=== PATIENT | female | born 1950 | race Caucasian/White ===

== ENCOUNTER 2018-04-24 10:30 | Inpatient (IN) | payer OTHER ==
--- NOTE | 2018-04-21 09:28 | HP ---
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 She had focally close margins in deep and medial aspect 2.5mm lateral and 3 mm medial skin margin. She has been advised to undergo Total mastectomy by another surgeon. She has strong famiy H/O breast cancer in two sisters. History Source: Patient Limitations to Obtaining History: No Limitations - Past Medical History Cardiovascular: Yes: HTN, Hyperlipdemia Additional Past Medical History: proctalgia fugax - Past Surgical History Past Surgical History: Yes: Tonsillectomy Additional Past Surgical History: Right breast wide excision for DCIS 2014, RT and re excision of right nipple showing pagets 2018 deviated septum - Smoking History Smoking history: Former smoker Have you smoked in the past 12 months: No Aproximately how many cigarettes per day: 20 If you are a former smoker, when did you quit?: 1977 - Alcohol/Substance Use Hx Alcohol Use: Yes (DAILY) Home Medications - Allergies Allergies/Adverse Reactions: Allergies Allergy/AdvReac Type Severity Reaction Status Date / Time codeine Allergy Severe Nausea Verified 04/17/18 11:07 SURGICAL TAPE AdvReac Severe WELTS ON Uncoded 04/17/18 11:18 SKIN - Home Medications Home Medications: Ambulatory Orders Aspirin [Aspirin EC] 81 mg PO DAILY 04/17/18 Cholecalciferol (Vitamin D3) [Vitamin D] 2,000 unit PO DAILY 04/17/18 Clonazepam 0.5 mg PO HS 04/17/18 Docusate Sodium 100 mg PO DAILY 04/17/18 Losartan/Hydrochlorothiazide [Losartan-Hctz 100-12.5 mg Tab] 1 each PO DAILY Melatonin 10 mg PO HS 04/17/18 [place]-3S/Dha/Epa/Fish Oil [Fish Oil 1,200 mg Softgel] 1 each PO DAILY 04/17/18 Polyethylene Glycol 3350 [Miralax (For Daily Use) -] 17 gm PO DAILY 04/17/18 Sennosides [Senna] 8.6 mg PO DAILY 04/17/18 Simvastatin 10 mg PO HS 04/17/18 Zinc 50 mg PO DAILY 04/17/18 Family Disease History - Family Disease History Family Disease History: [place]: Sister (DCIS at 48//Sister Breast ca 52 BRCA neg) Other Family History: nephew brain ca teen Physical Examination Constitutional: Yes: Well Nourished Breast(s): Yes: Other ( B cups breast obvious vertical well healed incision right breast from recent removal of right nipple areolar complex . no palpable densities either breast or adenopathy) Problem List - Problems (1) DCIS (ductal carcinoma in situ) of breast Code(s): D05.10 - INTRADUCTAL CARCINOMA IN SITU OF UNSPECIFIED BREAST Assessment/Plan DCIS and Pagets DZ Right total mastectomy with sentenel node biopsy, lymphoscintogram, possible axillary node dissection, implant reconstruction
[2018-04-24] MEDS ORDERED: ONDANSETRON 4 MG/2 ML VIAL ONE ×2 (12:36→16:42)
[2018-04-24] MEDS ORDERED: KETAMINE HCL 200 MG/20 ML VIAL ONE (12:36)
[2018-04-24] MEDS ORDERED: LIDOCAINE HCL/PF 2% SDV 5ML VIAL ONE (12:36)
[2018-04-24] MEDS ORDERED: DEXAMETHASONE SOD PHOSPHATE 4 MG/1 ML VIAL ONE (12:36)
[2018-04-24] MEDS ORDERED: SODIUM CHLORIDE 0.9% P/F 10 ML VIAL IJ ONE (12:36)
[2018-04-24] MEDS ORDERED: ceFAZolin SODIUM 1 GM VIAL ONE ×2 (12:36→13:29)
[2018-04-24] MEDS ORDERED: ROCURONIUM BROMIDE 50 MG/5 ML VIAL ONE ×2 (12:37→15:34)
[2018-04-24] MEDS ORDERED: PROPOFOL 20 ML ONE (12:37)
[2018-04-24] MEDS ORDERED: ESMOLOL HCL 100,000 MCG/10 ML VIAL ONE (12:40)
[2018-04-24 12:46] VITALS: BMI 24.4
[2018-04-24] MEDS ORDERED: MIDAZOLAM HCL 2 MG/2 ML SINGLE DOSE VIAL ONE ×2 (12:47)
[2018-04-24] MEDS ORDERED: BUPIVACAINE LIPOSOME/PF (EXPAREL) 266 MG/20 ML VIAL ONE (13:04)
[2018-04-24] MEDS ORDERED: GENTAMICIN SO4 80 MG/2 ML VIAL ONE (13:29)
[2018-04-24] MEDS ORDERED: ISOSULFAN BLUE 10 MG/ML VIAL SQ ONE (13:59)
[2018-04-24] MEDS ORDERED: ePHEDrine SULFATE 50 MG/1 ML AMPULE ONE (14:42)
[2018-04-24] MEDS ORDERED: ONDANSETRON 4 MG/2 ML VIAL IVPUSH PRN (16:00)
[2018-04-24] MEDS ORDERED: DEXTROSE 5%-0.45% SALINE 1,000 ML IV SCH (16:00)
[2018-04-24] MEDS ORDERED: ACETAMINOPHEN 325 MG TABLET (FP) PO PRN (16:00)
[2018-04-24] MEDS ORDERED: GLYCOPYRROLATE 0.2 MG/1 ML VIAL ONE (16:26)
[2018-04-24] MEDS ORDERED: NEOSTIGMINE METHYLSULFATE 0.5 MG/ML - 10 ML MDV ONE (16:26)
[2018-04-24] MEDS ORDERED: oxyCODONE HCL 5 MG TABLET PO PRN (16:27)
--- NOTE | 2018-04-24 17:07 | OP ---
Operative Note - Note: Operative Date: 04/24/18 Pre-Operative Diagnosis: Breast cancer Operation: Right breast reconstruction with implant and alloderm Surgeon: Kartik Shin Kitchen Aide: Richmond Kaplan Anesthesia: General Estimated Blood Loss (mls): 50 Operative Report Dictated: Yes
--- NOTE | 2018-04-24 17:07 | SURG ---
Surgery Satellite Manager Note Satellite Manager: Richmond Kaplan PA-C Date of Service: 04/24/18 Diagnosis: Right breast cancer Procedure: Right breast reconstruction with implant and alloderm I was present for the entirety of the operative procedure. For further detail, please refer to operative report.
[2018-04-24] MEDS ORDERED: ACETAMINOPHEN 1000 MG/100 ML VIAL (NON FORMULARY) IVPB ONE ×2 (17:22→17:23)
[2018-04-24] MEDS ORDERED: oxyCODONE HCL 10 MG SUSTAINED ACTING TABLET ONE (17:50)
[2018-04-24] MEDS ORDERED: oxyCODONE HCL 5 MG TABLET PO ONE (17:55)
[2018-04-24] MEDS ORDERED: oxyCODONE HCL 5 MG TABLET ONE (17:55)
[2018-04-24] MEDS: Methylnaltrexone Bromide 12 MG/0.6 ML KIT SQ SCH (17:58)
[2018-04-24] MEDS ORDERED: traMADol HCL 50 MG TABLET ONE (18:30)
[2018-04-24] MEDS ORDERED: traMADol HCL 50 MG TABLET PO ONE (18:35)
[2018-04-24] MEDS: traMADol HCL 50 MG TABLET PO SCH ×2 (19:15→21:19)
[2018-04-24] MEDS: ACETAMINOPHEN 325 MG TABLET (FP) PO SCH ×2 (19:15→23:20)
[2018-04-24] MEDS ORDERED: HYDROmorphone HCL CARPU-JECT 2 MG/1 ML DISP.SYRIN IVPB PRN (19:28)
[2018-04-24] MEDS ORDERED: CEFAZOLIN 1 GM/D5W 50 ML IVPB SCH (21:00)
[2018-04-24] MEDS: CEFAZOLIN 1 GM/D5W 1 GM/50 ML BAG IVPB SCH (21:17)
[2018-04-24] MEDS: SENNOSIDES 8.6MG TABLET (FP) PO SCH (21:17)
[2018-04-24] MEDS: ATORVASTATIN CA 10 MG TABLET (FP) PO SCH (21:18)
[2018-04-24] MEDS: diazePAM 5 MG TABLET PO SCH (21:18)
[2018-04-24] MEDS: POLYETHYLENE GLYCOL 3350 119 GM BTL PO SCH (21:18)
[2018-04-24] MEDS ORDERED: ZOLPIDEM TARTRATE 5 MG TABLET PO PRN (22:00)
[2018-04-24] MEDS: oxyCODONE HCL 5 MG TABLET PO PRN (23:20)
[2018-04-25] MEDS: CEFAZOLIN 1 GM/D5W 1 GM/50 ML BAG IVPB SCH (03:25)
[2018-04-25] MEDS: ACETAMINOPHEN 325 MG TABLET (FP) PO SCH ×3 (06:15→17:44)
[2018-04-25] MEDS: traMADol HCL 50 MG TABLET PO SCH ×3 (06:15→21:28)
[2018-04-25] MEDS: oxyCODONE HCL 5 MG TABLET PO PRN (06:18)
[2018-04-25 07:56] LABS: HEMATOCRIT 37.1 % (32.4-45.2); HEMOGLOBIN 12.6 GM/dl (10.7-15.3); MCH 33.3 pg (25.7-33.7); MEAN CELL VOLUME 97.8 fl (80-96); MEAN PLT VOLUME 7.8 fl (7.5-11.1); PLATELET COUNT 191 K/MM3 (134-434); RBC 3.79 M/mm3 (3.60-5.2); RDW 12.6 % (11.6-15.6); WHITE BLOOD COUNT 7.2 K/mm3 (4.0-10.8)
[2018-04-25] MEDS ORDERED: PT OWN MED DRAWER 7, Y5N ONE (09:15)
[2018-04-25] MEDS: OMEGA-3 ACID ETHYL ESTERS (FATTY-ACIDS) 1 GM CAPSULE (FP) PO SCH ×2 (09:21→21:27)
[2018-04-25] MEDS: DOCUSATE SODIUM 100 MG CAPSULE (FP) PO SCH (09:21)
[2018-04-25] MEDS: diazePAM 5 MG TABLET PO SCH ×2 (09:21→21:29)
[2018-04-25] MEDS: HYDROCHLOROTHIAZIDE 12.5 MG CAPSULE (FP) PO SCH (09:21)
[2018-04-25] MEDS: HEPARIN NA (PORCINE) 5,000 UNITS/ML 1ML VIAL SQ SCH ×2 (09:21→21:29)
[2018-04-25] MEDS: LOSARTAN POTASSIUM 50 MG TABLET (FP) PO SCH (09:21)
[2018-04-25] MEDS: CEFAZOLIN 1 GM/D5W 1 GRAM/50 ML BAG IVPB SCH ×3 (09:21→21:27)
--- NOTE | 2018-04-25 09:36 | PN ---
Progress Note, Physician Chief Complaint: S/P right mastectomy with reconstruction POD#1 History of Present Illness: Patient was seen at the bedside today and was resting comfortably. She reports mild discomfort at the site of LUIS F but otherwise reports good pain control. Patient is tolerating fluids well. - Current Medication List Current Medications: Active Medications Acetaminophen (Tylenol -) 650 mg PO Q6HPO [facility] Last Admin: 04/25/18 06:15 Dose: 650 mg Atorvastatin Calcium (Lipitor -) 10 mg PO HS [facility] Last Admin: 04/24/18 21:18 Dose: 10 mg Diazepam (Valium -) 5 mg PO BID [facility] Last Admin: 04/25/18 09:21 Dose: 5 mg Docusate Sodium (Colace -) 100 mg PO DAILY [facility] Last Admin: 04/25/18 09:21 Dose: 100 mg Heparin Sodium (Porcine) (Heparin -) 5,000 unit SQ BID [facility] Last Admin: 04/25/18 09:21 Dose: 5,000 unit Hydrochlorothiazide (Hctz -) 12.5 mg PO DAILY [facility] Last Admin: 04/25/18 09:21 Dose: 12.5 mg Hydromorphone HCl (Dilaudid Injection -) 0.5 mg IVPB Q6H PRN PRN Reason: PAIN LEVEL 6-10 Last Admin: 04/24/18 19:50 Dose: 0.5 mg Dextrose/Sodium Chloride (D5-1/2ns -) 1,000 mls @ 100 mls/hr IV ASDIR [facility] Last Admin: 04/24/18 19:15 Dose: Not Given Cefazolin Sodium (Ancef 1 Gm Premixed Ivpb -) 1 gram in 50 mls @ 100 mls/hr IVPB Q6H-IV [facility] Last Admin: 04/25/18 09:21 Dose: 100 mls/hr Losartan Potassium (Cozaar -) 100 mg PO DAILY [facility] Last Admin: 04/25/18 09:21 Dose: 100 mg Methylnaltrexone Adona (Relistor -) 12 mg SQ DAILY [facility] Last Admin: 04/24/18 17:58 Dose: 12 mg [id number] Ethyl Esters (Lovaza -) 2 gm PO BID [facility] Last Admin: 04/25/18 09:21 Dose: 2 gm Ondansetron HCl (Zofran Injection) 4 mg IVPUSH Q6H PRN PRN Reason: NAUSEA AND/OR VOMITING Oxycodone HCl (Roxicodone -) 5 mg PO Q4H PRN PRN Reason: PAIN LEVEL 1-5 Oxycodone HCl (Roxicodone -) 10 mg PO Q4H PRN PRN Reason: PAIN LEVEL 6-10 Last Admin: 04/25/18 06:18 Dose: 10 mg Polyethylene Glycol (Miralax (For Daily Use) -) 17 gm PO HS [facility] Last Admin: 04/24/18 21:18 Dose: 17 g Senna (Senna -) 1 tab PO HS [facility] Last Admin: 04/24/18 21:17 Dose: 1 tab Tramadol HCl (Ultram -) 50 mg PO TID [facility] Last Admin: 04/25/18 06:15 Dose: 50 mg Zolpidem Tartrate (Ambien -) 5 mg PO HS PRN PRN Reason: Insomnia - Objective Vital Signs: Vital Signs Temperature 98.9 F 04/25/18 06:00 Pulse Rate 63 04/25/18 06:00 Respiratory Rate 16 04/25/18 08:11 Blood Pressure 94/50 L 04/25/18 06:00 O2 Sat by Pulse Oximetry (%) 99 04/25/18 08:11 Constitutional: Yes: Well Nourished, Calm Breast(s): Yes: Other (Right breast flap with good color and minimal ecchymosis. Steristrips are C/D/I. LUIS F with serosanginous discharge noted.) Labs: CBC, BMP 04/25/18 07:15 Problem List - Problems (1) DCIS (ductal carcinoma in situ) of breast Code(s): D05.10 - INTRADUCTAL CARCINOMA IN SITU OF UNSPECIFIED BREAST Assessment/Plan S/P right mastectomy with reconstruction and lymphoscintogram POD#1 Plan: OOB today with assistance DC IVF when tolerating po well IS 10xs hourly Plan for discharge in am
--- NOTE | 2018-04-25 09:47 | PN ---
Progress Note (short form) - Note Progress Note: Post op day#1.S/P Right mastectomy with reconstruction under GA uneventful.Patient stable and has little pain for which is on medication.No any anesthesia related problem.Patient Dc from the anesthesia care.
--- NOTE | 2018-04-25 09:57 | OP ---
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 PROCEDURE: Right breast total mastectomy, skin sparing, with attempted right axillary sentinel lymph node biopsy and right direct implant reconstruction with AlloDerm. ANESTHESIA: General anesthesia. PRIMARY SURGEON: Юлия Henriquez MD POOLROOM/POOLHALL MANAGER: ROME Pantoja PRIMARY SURGEON FOR IMPLANT RECONSTRUCTION WITH ALLODERM: Юлия Shin MD COMPLICATIONS: None. HISTORY: Briefly, the patient is a 67-year-old, nulliparous, postmenopausal, white female of [place] descent. She has a family history of one sister who had DCIS at age 48 and another sister had a tubular breast cancer at age 52. A paternal cousin had postmenopausal breast cancer. The patient has a history of undergoing a right breast partial mastectomy in December 2014 for high-grade DCIS, which was ER/MI negative and she had 3 negative sentinel lymph nodes. She had radiation to the right breast. She then noticed some changes in the right nipple in 2017. In January 2018 she had the nipple excised showing Kylee's disease of the nipple with DCIS with focally close margins. The DCIS was ER/MI negative, HER2-3+. The patient was advised on undergoing a total mastectomy with removal of the entire nipple areolar complex and was seen by Plastic Surgery preoperatively and direct implant reconstruction was chosen. She was brought in for the procedure with attempt at a repeat sentinel lymph node biopsy on April 24, 2018. She had a lymphoscintigraphy performed to the periareolar injection of technetium 99 prior to the procedure. She was brought to the holding area. In the holding area, site verification was made and informed consent was obtained. She was marked preoperatively by the plastic surgeon. DESCRIPTION OF PROCEDURE: The patient was brought into the operating room and laid on the OR table in the supine position. Venodynes were placed on the lower extremities. She received 1 g of Ancef prior to the incision. Both breasts were sterilely prepped and draped in the usual fashion with the right arm prepped in the field. Once she was properly anesthetized, we reopened the previous sentinel lymph node incision in the right axilla. Dissection was undertaken but no blue or hot nodes were found. On review of the lymphoscintigraphy, it looked like the dye actually traveled to the left axilla, but this was not felt to be needed to be biopsied. Since no sentinel nodes were found and she just had Kylee's disease recurrence in the right breast, no axillary rajni evaluation will be performed. She then had the total skin sparing mastectomy performed through a vertical incision, removing the entire nipple areolar complex. Skin flaps were raised using the PEEK device superiorly to the level of the clavicle, medially to the level of the sternum, laterally to the level of the latissimus, and inferiorly to the level of the inframammary fold. The breast was taken off of the pectoralis major muscle using electrocautery from [id number] and completely removed intact. It was oriented with a long lateral and short superior suture and weighed to allow for appropriate cosmetic result. A separate anterior margin was taken on the lateral flap and sent to pathology as anterior margin of the suture margin of the biopsy cavity side. Hemostasis was achieved and the wound was copiously irrigated with warm sterile saline. At this point, Dr. Shin became the primary surgeon to perform the direct implant reconstruction in the subpectoral location with AlloDerm. This will be dictated separately by Plastic Surgery. All wounds will be closed by Plastic Surgery. We did use the skin perfusion device during the procedure, which showed good skin perfusion. The patient will be recovered in the postanesthesia care unit postoperatively and will be admitted for postoperative pain and wound management. All sponge and needle counts are correct at this point in the case. Estimated blood loss was about 30 mL. She was hemodynamically stable. ЮЛИЯ HENRIQUEZ M.D. [id number]
[2018-04-25] MEDS ORDERED: PATIENT'S OWN MEDICATION (NON-FORMULARY) (Losartan/Hydrochlorothiazide [Losartan-Hctz 100- PO SCH (10:00)
[2018-04-25] MEDS ORDERED: LOSARTAN POTASSIUM 100 MG TABLET PO SCH (10:00)
[2018-04-25] MEDS: Methylnaltrexone Bromide 12 MG/0.6 ML KIT SQ SCH (10:19)
[2018-04-25] MEDS: SENNOSIDES 8.6MG TABLET (FP) PO SCH (21:29)
[2018-04-25] MEDS: ATORVASTATIN CA 10 MG TABLET (FP) PO SCH (21:29)
[2018-04-25] MEDS: POLYETHYLENE GLYCOL 3350 119 GM BTL PO SCH (21:34)
[2018-04-26] MEDS: ACETAMINOPHEN 325 MG TABLET (FP) PO SCH ×3 (00:56→12:00)
[2018-04-26] MEDS: oxyCODONE HCL 5 MG TABLET PO PRN ×2 (01:59→12:30)
[2018-04-26] MEDS: CEFAZOLIN 1 GM/D5W 1 GRAM/50 ML BAG IVPB SCH ×2 (02:05→09:25)
[2018-04-26] MEDS: traMADol HCL 50 MG TABLET PO SCH (05:58)
[2018-04-26 07:01] VITALS: BP 105/56; PULSE 65; TEMP 99.4
[2018-04-26] MEDS: OMEGA-3 ACID ETHYL ESTERS (FATTY-ACIDS) 1 GM CAPSULE (FP) PO SCH (10:26)
[2018-04-26] MEDS: HYDROCHLOROTHIAZIDE 12.5 MG CAPSULE (FP) PO SCH (10:26)
[2018-04-26] MEDS: HEPARIN NA (PORCINE) 5,000 UNITS/ML 1ML VIAL SQ SCH (10:26)
[2018-04-26] MEDS: LOSARTAN POTASSIUM 50 MG TABLET (FP) PO SCH (10:26)
[2018-04-26] MEDS: DOCUSATE SODIUM 100 MG CAPSULE (FP) PO SCH (10:26)
[2018-04-26] MEDS: diazePAM 5 MG TABLET PO SCH (10:27)
[2018-04-26] MEDS ORDERED: PT OWN MED DRAWER 7, Y5N ONE (11:40)
[2018-04-26] MEDS ORDERED: REFRIGERATED ANITBIOTICS ONE (11:42)
--- NOTE | 2018-04-26 12:08 | DS ---
Physical Examination Vital Signs: Vital Signs Temperature 99.4 F 04/26/18 06:00 Pulse Rate 65 04/26/18 06:00 Respiratory Rate 18 04/26/18 06:00 Blood Pressure 105/56 L 04/26/18 06:00 O2 Sat by Pulse Oximetry (%) 95 04/26/18 06:00 Constitutional: Yes: Well Nourished, No Distress Wound/Incision: Yes: Clean/Dry (Skin flaps warm and viable Mild ecchymosis Drain functioning, serosanguineous effluent) Neurological: Yes: Alert, Oriented Labs: CBC, BMP 04/25/18 07:15 Discharge Summary Reason For Visit: RIGHT BREAST CA Procedures: Principal: Right mastectomy Hospital Course: Pt was stable throughout hospital stay Condition: Good - Instructions Diet, Activity, Other Instructions: BREAST SURGERY INSTRUCTIONS Bakari Henriquez M.D., SANDEEP Henriquez M.D., SANDEEP Mondragon M.D., FACS 1. Please call the office at to make a follow up appointment with your surgeon. This number can be also used for any urgent issues you may have. 2. Call us immediately if any of the following occur: *Bleeding from the incision or drain site (a small amount is normal) *Fever or chills *Redness and worsening tenderness around the surgical site *Drainage of pus or fluid from the incision or drain site 3. You may change the surgical dressing two (2) days after your surgery, and may shower then. If you have drains, you may shower after they have been removed, until then take a sponge bath. 4. It is normal for there to be some bruising and tenderness around the surgical site, and the breast may also be firm in this area. 5. Your surgeon used 3M DuraPrep Surgical Solution, a bacteria-killing skin preparation. It is recommended that this film remain on the skin after the procedure. The film will gradually wear away. If, however, early removal is desired: 1. Apply 8610 or 8611 3M Remover solution to the prepped area, keeping away from the wound edge or puncture site. Wipe off with a disposable towel. OR 2. Soak gauze with 70% Isopropyl alcohol and place on the prepped area for at least 40 seconds. Lightly scrub to remove the solution. 6. Please wear a comfortable bra (sports or surgical bra) all day and all night until your first follow-up visit with your surgeon. 7. The pain medicine you have been prescribed may make you constipated; make sure you drink plenty of water. You may use an over the counter laxative if needed. 8. You may resume your normal diet after surgery, although you may want to avoid rich foods for the first twenty-four (24) hours after surgery. Alcoholic drinks should be avoided while taking the prescribed pain medicine. 9. You may resume normal activities as long as there is no discomfort, but do not do upper body exercises until after your follow-up appointment. Do not lift anything heavier than a large phone book. You may resume driving once you have stopped taking the prescribed pain medicine and feel comfortable doing arm movements. Disposition: HOME - Home Medications Comprehensive Discharge Medication List: Ambulatory Orders Aspirin [Aspirin EC] 81 mg PO DAILY 04/17/18 Cholecalciferol (Vitamin D3) [Vitamin D] 2,000 unit PO DAILY 04/17/18 Clonazepam 0.5 mg PO HS 04/17/18 Docusate Sodium 100 mg PO DAILY 04/17/18 Losartan/Hydrochlorothiazide [Losartan-Hctz 100-12.5 mg Tab] 1 each PO DAILY [place]-3S/Dha/Epa/Fish Oil [Fish Oil 1,200 mg Softgel] 1 each PO DAILY 04/17/18 Polyethylene Glycol 3350 [Miralax (For Daily Use) -] 17 gm PO HS 04/17/18 Sennosides [Senna] 8.6 mg PO HS 04/17/18 Simvastatin 10 mg PO HS 04/17/18 Zinc 50 mg PO DAILY 04/17/18 Diazepam [Valium] 5 mg PO ONCE 04/24/18 Diphenhydramine HCl [Benadryl -] 25 mg PO ONCE 04/24/18
--- NOTE | 2018-04-27 12:28 | OP ---
DATE OF OPERATION: 04/24/2018 SURGEON: Юлия Shin MD FUR FINISHER SURGEON: Richmond domínguez PA-C PREOPERATIVE DIAGNOSIS: Acquired right chest wall deformity, status post right mastectomy for recurrent breast cancer. POSTOPERATIVE DIAGNOSIS: Acquired right chest wall deformity, status post right mastectomy for recurrent breast cancer. PROCEDURE: 1. Right immediate breast reconstruction utilizing immediate insertion of silicone breast implant and AlloDerm reconstruction. 2. Intravenous injection of indocyanine green dye and intraoperative diagnostic evaluation of non-coronary intraoperative fluorescein vascular angiography x2. ANESTHESIA: General. OPERATIVE PROCEDURE IN DETAIL: The patient was taken to the operating room. After induction of general anesthesia in the supine position, both arms were extended and padded. Venodyne boots were placed. The entire chest wall was painted with ChloraPrep solution over its entire extent, and sterile drapes were placed in the usual fashion. The markings, which had been made in the standing position preoperatively, were reoutlined with the patient's knowledge. Time-out procedure was performed. Attention was turned by Dr. Henriquez to the mastectomy. Right inframammary incision was made and Dr. Henriquez performed mastectomy. This will be dictated under separate cover. Upon completion of the mastectomy, the wound was copiously irrigated and attention was turned to the right breast. A subpectoral dissection was begun on the right breast, superiorly from the second rib, medially to the sternal fibers, and down to the inframammary fold, elevating the pectoralis major muscle from its insertion. At this point, a perforated medium contour of AlloDerm was brought into the field and sutured superiorly along the pectoralis major muscle after rehydration. This was carried along the lateral mammary fold and down the side of the breast reconstruction. At this point, [facility] breast implant, style SSF 560 mL was chosen. The right breast tissue removed was approximately 558 gm. This implant was placed and then sutured with 3-0 Vicryl suture continued along the inframammary fold, completely covering the implant itself. She also had contoured medium perforated sheet of AlloDerm placed on the right side and Spy intraoperative angiogram x2. This showed good blood flow to the skin flaps. Two 15 Abhijeet drains were brought out through separate stab wounds laterally. The Smart Infuser pump catheter was inserted medially and into the subpectoral position. The wound was closed using 3-0 PDS suture on the deep tissue, 3-0 in a deep dermal fashion, and 4-0 in a subcuticular fashion. The wound was dressed sterilely with Mastisol and Steri-Strips with a surgical bra and a compression strap. The patient tolerated the procedure well. She was awakened, extubated and transferred to the recovery room in satisfactory condition. The diver assistant was present during the entire portion of the operation and closure. ЮЛИЯ SHIN M.D. [id number] MTDD
--- NOTE | 2018-05-02 14:26 | PATH ---
Surgical Pathology Report Patient Name: PETR LEAL Med. Rec. #: [id number] /Age/Gender: 1950 (Age: 68) / F Account: [id number] Location: [facility] MED-SURG Taken: 04/24/2018 Received: 04/24/2018 Reported: 05/01/2018 Physicians: Jerome Henriquez M.D. Specimen(s) Received A: RIGHT BREAST TISSUE B: RIGHT BREAST ANTERIOR MARGIN Clinical History Recurrent right breast cancer-Paget's in nipple, previously removed (may not have residual but evaluate remaining areolar skin for Paget's). Final Diagnosis A. BREAST, RIGHT, MASTECTOMY: FOCAL DUCTAL CARCINOMA IN SITU (DCIS), HIGH NUCLEAR GRADE, MICROPAPILLARY TYPE, IN A BACKGROUND OF DENSE FIBROSIS, HISTIOCYTIC PROLIFERATION AND GIANT CELL REACTION, CONSISTENT WITH TREATED TUMOR BED. DCIS MEASURES 2 MM IN GREATEST MICROSCOPIC DIMENSION; COMPRISES APPROXIMATELY 10% OF TUMOR BED TISSUE. DCIS PRESENT IN TWO OF TWENTY SLIDES (2/20), UPPER INNER QUADRANT (UIQ). SURGICAL MARGINS ARE NEGATIVE, DCIS IS 1 CM FROM CLOSEST ANTERIOR MARGIN. SEE PART B FOR FINAL ANTERIOR MARGIN. SKIN PRESENT AND UNINVOLVED BY CARCINOMA, NO PAGET'S DISEASE IDENTIFIED. REMAINDER OF BREAST TISSUE SHOWS FIBROCYSTIC CHANGES AND RARE STROMAL MICROCALCIFICATIONS. PATHOLOGIC STAGE (pTNM): ypTis pNx. SEE CASE SUMMARY BELOW. B. BREAST, RIGHT, ANTERIOR MARGIN, EXCISION: BENIGN BREAST TISSUE AND SCANT SKELETAL MUSCLE. Comment: Part A, Immunohistochemical stains performed at [place], [place] ([id number]) and interpreted at [facility] on skin sections show that CK7, ER and HER2 (IHC) are negative. Prior material is reviewed ([id number]). Comments DCIS of the Breast: Surgical Pathology Cancer Case Summary (Based on AJCC TNM 8 th edition) Procedure _X__ Total mastectomy (including nipple-sparing and skin-sparing mastectomy) Specimen Laterality _X_ Right Size (Extent) of DCIS Estimated size (extent) of DCIS (greatest dimension using gross and microscopic evaluation): at least (millimeters) _2_ mm (range from <1 mm-2 mm) Number of blocks with DCIS: _2__ Number of blocks examined: _20__ Histologic Type _X_ Ductal carcinoma in situ Architectural Patterns _X_ Micropapillary Nuclear Grade _X_ Grade III (high) Necrosis _X_ Not identified Margins _X__ Uninvolved by DCIS Distance from closest margin (millimeters): 1 cm in mastectomy specimen; additional final margin (part B) is negative. Specify closest margin: Anterior Regional Lymph Nodes _X__ No lymph nodes submitted or found Pathologic Stage Classification (pTNM, AJCC 8th Edition) Primary Tumor (pT) _X_ pTis (DCIS): Ductal carcinoma in situ Category (pN) _X_ pNx: Regional lymph nodes cannot be assessed. Microcalcifications _X_ Present in nonneoplastic tissue (stroma) Biomarker Studies Results of ER and WI studies performed on this specimen (block #A4) at [facility] are as follows: ER (clone [id number] mouse monoclonal antibody by [employer]): 0% nuclear staining (Negative). WI (clone16 mouse monoclonal antibody by [employer]): 0% nuclear staining (Negative). Positive and negative controls (internal if applicable) show appropriate results. Formalin fixation and cold ischemic times are within current ASCO/CAP recommendations for ER, WI and Her2 testing. Electronically Signed Shila Harrison M.D. Gross Description A. Received in formalin, labeled "right breast tissue," is a 426 gram, 17.0 x 15.5 x 3.8 cm. right mastectomy specimen with a short suture marking the superior aspect and a long suture marking the lateral aspect of the specimen, per the surgeon. The anterior surface displays a 3.7 x 1.7 cm cruz, elliptical portion of skin with a central, linear, vertical scar. The deep margin is inked black and the anterior soft tissue margin is inked blue. The specimen is serially sectioned from lateral to medial. Sectioning reveals an 8.4 x 7.0 x 2.6 cm focus of firm fibrous tissue focally spanning all four quadrants. The focus involves the anterior soft tissue margin and abuts the skin. There is a 2.0 x 1.7 x 1.5 cm nodular focus of firm fibrosis with possible necrosis within the area of fibrous tissue, in the upper inner quadrant (UIQ), possibly consistent previous biopsy site. There is an additional nodular focus of fibrous tissue within the lower inner quadrant (LIQ), abutting the anterior soft tissue margin. Global [employer] Manager sections are submitted in 20 cassettes as follows: 4-8-[id number] previous biopsy site from UIQ; 6-92-kyflrkjd submitted skin from medial to lateral; 94-27-gkclqzj focus of fibrous tissue with anterior soft tissue margin from LIQ; 14-16-one trisected section of fibrous tissue from lateral aspect of specimen (14-lower outer quadrant; 15-central; 16-upper outer quadrant); 26-25-neeyracngl fibrous tissue from lower outer quadrant; 19- anterior soft tissue margin; 20-deep margin. Time to formalin fixation: 5 minutes Total formalin fixation time: Approximately 26 hours. B. Received in formalin labeled "right breast anterior margin" is a 9.0 x 4.9 x 1.0 cm portion of fibroadipose tissue with a suture marking the biopsy cavity side, per the surgeon. The new margin is inked blue and the specimen is serially sectioned. The specimen is entirely and sequentially submitted in 16 cassettes. 04/25/2018 [facility]04/25/2018
== END 2018-04-26 13:00 | disposition home or self-care (01) | DRG 583 ==
LOC: FM/S 11:18
PROVIDERS: ADMIT Surgery Surgical Oncology; ATTEND Surgery Surgical Oncology
PROC: 4A1GXSH Monitoring of Skin and Breast Vascular Perfusion using Indocyanine Green Dye, External Approach (ICD-10-PCS; 2018-04-24)
PROC: 0HTT0ZZ Resection of Right Breast, Open Approach (ICD-10-PCS; principal; 2018-04-24 14:20)
PROC: 0HRT0JZ Replacement of Right Breast with Synthetic Substitute, Open Approach (ICD-10-PCS; 2018-04-24 14:20)
PROC: 07T50ZZ Resection of Right Axillary Lymphatic, Open Approach (ICD-10-PCS; 2018-04-24 14:20)
DX: D05.11 Intraductal carcinoma in situ of right breast (principal); Z17.1 Estrogen receptor negative status [ER-]
CPT/HCPCS: 36415; 78195-TC; 85027; 88307-TC; 94760; A9541; J0131; J1644